=== PATIENT | female | born 1955 | race Caucasian/White ===

== ENCOUNTER 2022-07-15 01:07 | Emergency (ER) | payer OTHER, SELFPAY ==
[2022-07-15] VITALS (7 sets, daily range): BP systolic 78–137; BP diastolic 39–66; PULSE 78–90; RESP 11–18; TEMP 35.9–36.6; O2SAT 95–98; BMI 18.8
--- NOTE | 2022-07-15 | ECG_ITS ---
Test Reason : HYPOTENSION Blood Pressure : / mmHG Vent. Rate : 089 BPM Atrial Rate : 089 BPM P-R Int : 164 ms QRS Dur : 072 ms QT Int : 368 ms P-R-T Axes : 041 050 074 degrees QTc Int : 447 ms Normal sinus rhythm Normal ECG No previous ECGs available Referred By: Cindi Kinsey Electronically Signed By:Chance Amaro
--- NOTE | ~2022-07-15 | CT_ITS ---
EXAMINATION: CT ABDOMEN AND PELVIS WITHOUT CONTRAST CLINICAL INFORMATION: Abdominal pain COMPARISON: None available. TECHNIQUE: Multidetector volumetric imaging was performed from the superior aspect of the liver through the pubic symphysis. Sagittal and coronal reformatted images were obtained on the technologist's workstation. This CT examination was performed using dose optimization techniques as appropriate, variously including the following: *Automated exposure control *Adjustment of mA and/or kV according to patient size (this includes techniques or standardized protocols for targeted exams where dose is matched to indication/reason for exam; i.e. extremities or head) *Use of iterative reconstruction technique DLP: 590 mGy-cm FINDINGS: LUNG BASES: The visualized lung bases are unremarkable. LIVER, GALLBLADDER, AND BILIARY TREE: The liver is normal in size, shape, and attenuation. No focal hepatic lesion or biliary ductal dilatation is present. The gallbladder is unremarkable with no evidence of radiopaque gallstones, gallbladder wall thickening, or obvious pericholecystic inflammatory changes. PANCREAS: Unremarkable. SPLEEN: Unremarkable. ADRENAL GLANDS: Unremarkable. KIDNEYS AND URETERS: The kidneys are normal in size, shape, and attenuation. No hydronephrosis, hydroureter, or calculi seen. No perinephric stranding. BLADDER: Unremarkable. GASTROINTESTINAL TRACT: Stomach is distended, however there is no evidence of gastric outlet obstruction. No bowel obstruction. Moderate stool throughout the colon. No evidence of appendicitis. ABDOMINAL WALL: No significant hernia is appreciated. LYMPH NODES: Normal. VASCULAR: Aorta is atherosclerotic, but normal caliber. PELVIC VISCERA: Unremarkable. OSSEOUS STRUCTURES: No acute or suspicious osseous abnormalities. CT/CT abdomen pelvis wo IV con IMPRESSION: * No acute findings within the abdomen or pelvis to explain the patient's symptomatology. * Distended stomach without evidence of gastric outlet obstruction. * Moderate constipation. Fleischner guidelines were followed.
--- NOTE | ~2022-07-15 | XR_ITS ---
EXAMINATION: XR CHEST CLINICAL INFORMATION: Cough COMPARISON: None available. TECHNIQUE: Frontal view of the chest was obtained. FINDINGS: Normal symmetric lung volumes. No parenchymal consolidation. No pleural effusion. No pneumothorax. Cardiomediastinal silhouette and pulmonary vascularity are within normal limits. Aorta is atherosclerotic. No acute osseous abnormalities. Healed right anterior fourth and fifth rib fractures. XR/XR chest 1V IMPRESSION: No acute findings
[2022-07-15 01:48] LABS: Basophils Absolute Auto 0.1 X10*3/uL (0.0-0.2); Basophils Percent Auto 0.3 % (0-2); Eosinophils Percent Auto 0.2 % (0-4); Hemoglobin 13.7 g/dl (12.0-16.0); Imm Gran Abs Auto 0.07 X10*3/uL (0.00-0.03); Imm Gran Pct Auto 0.4 % (0.0-0.4); Lymphocytes Absolute Auto 1.9 X10*3/uL (1.2-4.9); Lymphocytes Percent Auto 11.7 % (20-40); MANUAL DIFF FLAG NO; Mean Corpuscular HGB Conc 34.3 g/dl (31.0-35.0); Mean Corpuscular Hemoglobin 30.8 pg (27.0-33.0); Mean Corpuscular Volume 89.9 fL (80.0-98.0); Monocytes Absolute Auto 1.2 X10*3/uL (0.1-1.2); Monocytes Percent Auto 7.1 % (2-11); Neutrophils Percent Auto 80.3 % (45-73); Platelet Count 401 X10*3/uL (160-400); Red Blood Count 4.45 X10*6/uL (4.20-5.50); Red Cell Distribution Width 13.3 % (11.0-16.0); White Blood Count 16.2 X10*3/uL (4.8-10.8)
--- NOTE | 2022-07-15 01:49 | PC.NURSE ---
Per Gia AGUILAR at [facility], pt was found on floor of room covered in stool prior to EMS arrival. Unwitnessed falls, denies thinners denies LOC. LAUREN Nielsen requesting to be called with patients medical status at [phone]
[2022-07-15] MEDS: 0.9 % Sodium Chloride 1,000 ML 999 ML IV (02:03)
[2022-07-15 02:04] LABS: Anion Gap 17 (12-20); Blood Urea Nitrogen 13 mg/dL (9-16); Calcium 9.7 mg/dL (8.4-10.2); Carbon Dioxide 21 mmol/L (22-29); Chloride 104 mmol/L (96-108); Creatinine Clr Calc Pharmacy 23.8; Estimated Glomerular Filt Rate 28; Glucose Random 132 mg/dL (60-115); Potassium 4.2 mmol/L (3.3-5.1); Sodium 138 mmol/L (135-145)
[2022-07-15 02:09] LABS: Troponin-I High Sensitivity 14.2 ng/L (<3.5-17.0)
[2022-07-15 03:05] LABS: Lactic Acid 2.1 mmol/L (0.5-2.0)
[2022-07-15 03:08] LABS: B Type Natriuretic Peptide 22 pg/mL (<100)
[2022-07-15 03:08] LABS: Appearance Urine Clear; Color Urine Yellow; Glucose Urine UA Negative (Negative); Leukocyte Esterase Urine Trace (Negative); Nitrite Urine Negative (Negative); UMIC TRIGGER UACC YES; Urine Blood Negative (Negative); Urine Ketones Trace mg/dL (Negative); Urine Protein 30 (1+) mg/dL (Neg-Trace)
[2022-07-15] MEDS: cefTRIAXone sodium 1 GM in 0.9 % Sodium Chloride 50 ML IV (03:12)
--- NOTE | 2022-07-15 03:14 | ED.WEAKNESS ---
HPI - Weakness General Chief complaint: Weakness Stated complaint: hypotension Time Seen by Provider: 07/15/22 01:34 Source: EMS Mode of arrival: EMS History of Present Illness HPI Narrative: This is a 66-year-old female who arrives from [facility] with hypotension, history of psychosis and dementia but staff found the patient on the floor with diarrhea. Patient is not able to provide any additional history at this time due to underlying dementia. Related Data Allergies Allergy/AdvReac Type Severity Reaction Status Date / Time Penicillins Allergy Anaphylaxis Verified 07/15/22 02:21 Review of Systems Review of Systems: Yes Unobtainable due to mental condition [facility] Past Medical History Source: nursing notes reviewed Social History Social History Alcohol intake: never Smoked in Last 30 Days: No Use of substances other than those prescribed or required for medical reasons: No Physical Exam Vital Signs: Vital Signs: Last Vital Signs Temp 97 F 07/15/22 04:00 Pulse 87 07/15/22 04:00 Resp 18 07/15/22 04:00 BP 137/65 07/15/22 04:00 Pulse Ox 97 07/15/22 04:00 O2 Del Method Room Air 07/15/22 04:00 BMI result Body Mass Index 18.8 VITAL SIGNS: Reviewed. GENERAL: Chronically ill, elderly in no acute distress. HEAD: Normocephalic/atraumatic EYES: PERRLA, EOMI EARS: Ext canals without abnormality NOSE: Nares patent bilateral OROPHARYNX: no oral lesions noted, posterior pharynx clear NECK: Supple, no adenopathy LUNGS: Good inspiratory effort, no expiratory wheeze, rhonchi, rales SpO2<98> CARDIOVASCULAR: Regular rate and rhythm without noted murmurs ABDOMEN: Soft, non-tender, non-distended with bowel sounds. MUSCULOSKELETAL: No tenderness, deformities, or effusions noted on gross inspection. EXTREMITIES: No cyanosis, clubbing or edema. SKIN: Inspection of the skin reveals no rashes NEUROLOGIC: Alert and oriented x 1, strength and sensation to light touch were grossly intact x 4. Medications Administered Discontinued Medications Generic Name Dose Route Start Last Admin Trade Name Freq PRN Reason Stop Dose Admin Sodium Chloride 1,000 mls @ 999 mls/hr 07/15/22 02:00 07/15/22 04:06 Ns IV 07/15/22 03:00 Infused .Q1H1M STEVE Infusion Sodium Chloride 1,496.85 mls @ 1,496.85 mls/hr 07/15/22 02:02 07/15/22 05:09 Ns 30 ml/kg infuse over 1 hr (1496.85 ml) 07/15/22 03:01 Infused IV Infusion .Q1H STA Ceftriaxone Sodium 1 gm/ 50 mls @ 100 mls/hr 07/15/22 02:41 07/15/22 04:07 Sodium Chloride IV 07/15/22 03:10 Infused ONCE ONE Infusion Medical Decision Making Medical Decision Making [facility] Narrative: 0230: 66-year-old female with suspected infection given the diarrhea and noted hypotension with elevated white count. Patient received IV sepsis fluids, antibiotics, blood cultures and lactic acid. Blood pressure as responded well to IV fluids. I reviewed all investigations and although patient does have a leukocytosis, CT abdomen/pelvis as well as urinalysis and chest x-ray are without evidence of acute infection. Suspect that this may be a component of hemoconcentration and patient has been significantly rehydrated, blood pressure remains steady and within normal limits. I reviewed the medication list from [employer] which clearly provides the nurses with information and guidance regarding soft stools/diarrhea. I do not think that patient needs any further antibiotics and she can continue with her home medications and be re-evaluated by primary care doctor at the facility. Differential Diagnosis Please see the discussion above Admission/Observation Consideration of admission/observation: Escalation of care including admission/observation considered Given suspicion for infection I am definitely considering admission. Lab Data Please see the discussion above 07/15/22 01:43 07/15/22 01:43 Labs: Lab Results 07/15/22 07/15/22 07/15/22 Range/Units 01:43 01:43 01:43 WBC 16.2 H (4.8-10.8) X10*3/uL RBC 4.45 (4.20-5.50) X10*6/uL Hgb 13.7 (12.0-16.0) g/dl Hct 40.0 (37.0-47.0) % MCV 89.9 (80.0-98.0) fL MCH 30.8 (27.0-33.0) pg MCHC 34.3 (31.0-35.0) g/dl RDW 13.3 (11.0-16.0) % Plt Count 401 H (160-400) X10*3/uL MPV 10.0 (9.4-12.3) fL Immature Gran % (Auto) 0.4 (0.0-0.4) % Neut % (Auto) 80.3 H (45-73) % Lymph % (Auto) 11.7 L (20-40) % Jones % (Auto) 7.1 (2-11) % Eos % (Auto) 0.2 (0-4) % Baso % (Auto) 0.3 (0-2) % Lymph # (Auto) 1.9 (1.2-4.9) X10*3/uL Jones # (Auto) 1.2 (0.1-1.2) X10*3/uL Eos # (Auto) 0.0 (0.0-0.4) X10*3/uL Baso # (Auto) 0.1 (0.0-0.2) X10*3/uL Abs Immat Gran (auto) 0.07 H (0.00-0.03) X10*3/uL Absolute Neuts (auto) 13.0 H (2.0-8.3) x10*3/uL Absolute Nucleated RBC 0.000 (0.0-0.012) X10*3/uL Nucleated RBC % (auto) 0.0 (0.0-0.2) /100WBC Sodium 138 (135-145) mmol/L Potassium 4.2 (3.3-5.1) mmol/L Chloride 104 (96-108) mmol/L Carbon Dioxide 21 L (22-29) mmol/L Anion Gap 17 (12-20) BUN 13 (9-16) mg/dL Creatinine 1.83 H (0.5-1.4) mg/dL Estim Creat Clear Calc 23.8 Estimated GFR 28 Random Glucose 132 H (60-115) mg/dL Lactic Acid (0.5-2.0) mmol/L Calcium 9.7 (8.4-10.2) mg/dL Troponin I High Sens 14.2 (<3.5-17.0) ng/L B-Natriuretic Peptide (<100) pg/mL Urine Color Urine Appearance Urine pH (5.0-9.0) Ur Specific [place] (1.005-1.025) Urine Protein (Neg-Trace) mg/dL Urine Glucose (UA) (Negative) mg/dL Urine Ketones (Negative) mg/dL Urine Blood (Negative) Urine Nitrite (Negative) Ur Leukocyte Esterase (Negative) Urine RBC (0-2) /HPF Urine WBC (0-5) /HPF Ur Squamous Epith Cells (0-2) /HPF Urine Bacteria (None Seen) Hyaline Casts (0-2) /LPF COVID-19 (NATHAN) (Negative) COVID-19 Clin Com 07/15/22 07/15/22 07/15/22 Range/Units 01:43 02:43 02:46 WBC (4.8-10.8) X10*3/uL RBC (4.20-5.50) X10*6/uL Hgb (12.0-16.0) g/dl Hct (37.0-47.0) % MCV (80.0-98.0) fL MCH (27.0-33.0) pg MCHC (31.0-35.0) g/dl RDW (11.0-16.0) % Plt Count (160-400) X10*3/uL MPV (9.4-12.3) fL Immature Gran % (Auto) (0.0-0.4) % Neut % (Auto) (45-73) % Lymph % (Auto) (20-40) % Jones % (Auto) (2-11) % Eos % (Auto) (0-4) % Baso % (Auto) (0-2) % Lymph # (Auto) (1.2-4.9) X10*3/uL Jones # (Auto) (0.1-1.2) X10*3/uL Eos # (Auto) (0.0-0.4) X10*3/uL Baso # (Auto) (0.0-0.2) X10*3/uL Abs Immat Gran (auto) (0.00-0.03) X10*3/uL Absolute Neuts (auto) (2.0-8.3) x10*3/uL Absolute Nucleated RBC (0.0-0.012) X10*3/uL Nucleated RBC % (auto) (0.0-0.2) /100WBC Sodium (135-145) mmol/L Potassium (3.3-5.1) mmol/L Chloride (96-108) mmol/L Carbon Dioxide (22-29) mmol/L Anion Gap (12-20) BUN (9-16) mg/dL Creatinine (0.5-1.4) mg/dL Estim Creat Clear Calc Estimated GFR Random Glucose (60-115) mg/dL Lactic Acid 2.1 H* (0.5-2.0) mmol/L Calcium (8.4-10.2) mg/dL Troponin I High Sens (<3.5-17.0) ng/L B-Natriuretic Peptide 22 (<100) pg/mL Urine Color Yellow Urine Appearance Clear Urine pH 7.0 (5.0-9.0) Ur Specific [place] 1.010 (1.005-1.025) Urine Protein 30 (1+) H (Neg-Trace) mg/dL Urine Glucose (UA) Negative (Negative) mg/dL Urine Ketones Trace (Negative) mg/dL Urine Blood Negative (Negative) Urine Nitrite Negative (Negative) Ur Leukocyte Esterase Trace H (Negative) Urine RBC 0-2 (0-2) /HPF Urine WBC 0-5 (0-5) /HPF Ur Squamous Epith Cells 0-2 (0-2) /HPF Urine Bacteria None Seen (None Seen) Hyaline Casts 6-10 (0-2) /LPF COVID-19 (NATHNA) (Negative) COVID-19 Clin Com 07/15/22 Range/Units 03:52 WBC (4.8-10.8) X10*3/uL RBC (4.20-5.50) X10*6/uL Hgb (12.0-16.0) g/dl Hct (37.0-47.0) % MCV (80.0-98.0) fL MCH (27.0-33.0) pg MCHC (31.0-35.0) g/dl RDW (11.0-16.0) % Plt Count (160-400) X10*3/uL MPV (9.4-12.3) fL Immature Gran % (Auto) (0.0-0.4) % Neut % (Auto) (45-73) % Lymph % (Auto) (20-40) % Jones % (Auto) (2-11) % Eos % (Auto) (0-4) % Baso % (Auto) (0-2) % Lymph # (Auto) (1.2-4.9) X10*3/uL Jones # (Auto) (0.1-1.2) X10*3/uL Eos # (Auto) (0.0-0.4) X10*3/uL Baso # (Auto) (0.0-0.2) X10*3/uL Abs Immat Gran (auto) (0.00-0.03) X10*3/uL Absolute Neuts (auto) (2.0-8.3) x10*3/uL Absolute Nucleated RBC (0.0-0.012) X10*3/uL Nucleated RBC % (auto) (0.0-0.2) /100WBC Sodium (135-145) mmol/L Potassium (3.3-5.1) mmol/L Chloride (96-108) mmol/L Carbon Dioxide (22-29) mmol/L Anion Gap (12-20) BUN (9-16) mg/dL Creatinine (0.5-1.4) mg/dL Estim Creat Clear Calc Estimated GFR Random Glucose (60-115) mg/dL Lactic Acid (0.5-2.0) mmol/L Calcium (8.4-10.2) mg/dL Troponin I High Sens (<3.5-17.0) ng/L B-Natriuretic Peptide (<100) pg/mL Urine Color Urine Appearance Urine pH (5.0-9.0) Ur Specific [place] (1.005-1.025) Urine Protein (Neg-Trace) mg/dL Urine Glucose (UA) (Negative) mg/dL Urine Ketones (Negative) mg/dL Urine Blood (Negative) Urine Nitrite (Negative) Ur Leukocyte Esterase (Negative) Urine RBC (0-2) /HPF Urine WBC (0-5) /HPF Ur Squamous Epith Cells (0-2) /HPF Urine Bacteria (None Seen) Hyaline Casts (0-2) /LPF COVID-19 (NATHAN) Negative (Negative) COVID-19 Clin Com See Note Independent Interpretation I performed an independent interpretation of an: EKG Interpretation: Normal sinus rhythm, HR-89, no STEMI, ID/QRS/QTC is within normal limits. Radiology Impression Radiologist Impression: My interpretation is in agreement with radiology's impression of the imaging studies. Discharge Plan Discharge Clinical Impression: Dehydration, Hypovolemia Patient Disposition: Xfer SNF Interventions: ED Discharge Assessment Last Done: 07/15/22 05:16
[2022-07-15] MEDS: 0.9 % Sodium Chloride 1,496.85 ML 1496.85 ML IV (03:16)
[2022-07-15 03:27] LABS: Bacteria Urine None Seen (None Seen); RBC Urine 0-2 /HPF (0-2); Squamous Epithelial Cell Urine 0-2 /HPF (0-2); WBC Urine 0-5 /HPF (0-5)
[2022-07-15 04:18] LABS: COVID-19 Test Negative (Negative); IDNOW Serial# 9DB6401D
[2022-07-15 04:48] LABS: Reflex Lactate? Lactic Acid Added
--- NOTE | 2022-07-15 05:13 | PC.NURSE ---
Report given to LAUREN Nielsen at [facility] with no further questions at this time
--- OUTSIDE RECORDS SUMMARY | 2022-07-15 06:46 | XMS_ITS ---
Author Name Gary Naik Address [address] [place] [address] Organization 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 Name Role Phone Gary Naik Unavailable [phone] PROBLEMS Type Condition ICD9-CM Code [id number] Code Onset Dates Condition Status SNOMED Code Problem Anxiety F41.9 Active 22105661 Problem Periodic limb moveme nt disorder G47.61 Active 351906371 Problem Hypercholesterolemia E78.00 Active 136 68892 Problem Asthma J45.909 Active 491578584 Problem Depression F32.9 Active 938022023 Problem Cognitive impairment , mild, so stated G31.84 Active 515823306 ALLERGIES Substance Reaction Event Type Date Status PriLOSEC Unknown Drug Allergy Oct, Active ENCOUNTERS Encounter Location Date Diagnosis [facility], [address] [address] Mar, [facility], [address] [address] Mar, [facility], [address] [address] Feb, [facility], [address] [address] Oct, Cognitive impairment, mild, so stated G31.84 and Periodic limb movement disorder G47.61 IMMUNIZATIONS No Known Immunizations SOCIAL HISTORY Qualifiers Date Current Smoker REASON FOR REFERRAL FUNCTIONAL STATUS PLAN OF CARE Activity Details VITAL SIGNS Heart Rate 92 /min 2020-11-02 Weight 132 lbs 2020-11-02 BMI 24.94 kg/m2 2020-11-02 Height 61 in 2020-11-02 Oximetry 98 % 2020-11-02 Blood pressure systolic 128 mm Hg Blood pressure diastolic 84 mm Hg 2020-10 MEDICATIONS Medication Instructions Dosage Frequency Start Date End Date Duration Status Benztropine Mesylate 1 MG 30 Active Magnesium Bisglycinate 100 MG Orally Take 2 tablets twice daily as directed Oct, Active Pravastatin Sodium 80 MG 30 Active Tamsulosin HCl 0.4 MG 30 Active Pantoprazole Sodium 40 MG 30 Active Sertraline HCl 100 MG 30 Active QUEtiapine Fumarate 200 MG 30 Acti ve Perphenazine 16 MG 30 Active Rivastigmine Tartrate 3 MG TAKE 1 CAPSULE(S) TWICE ADAY BY ORAL ROUTE FOR 30DAYS. 30 30 Active Gabapentin 100 MG TAKE 4 CAPSULES BY MOUTH EVERY DAY AT BEDTIME 30 30 Active PROCEDURES No Known procedures RESULTS No Results REASON FOR VISIT 6 month f/u, magnesium, refill/ question, follow-up, f/u Insurance Providers Health Insurance Type Health Plan Insurance Address Health Plan Insurance Phone Health Plan Insurance Name Health Plan Coverage Dates Member ID Patient Relationship to Subscriber Patient Address Patient Phone Patient Name Patient Date of Subscriber ID Subscriber Name Subscriber Date of Group No MEDICARE [address] [place] [id number] MEDICARE self [place]isha [place] [id number] [facility] [address] [place] [address] [facility] self Elishasloane [place] [id number]
--- OUTSIDE RECORDS SUMMARY | 2022-07-15 06:46 | XMS_ITS ---
Author Name Angeles Marcial Address [address] [place] [address] Organization [facility] Address [address] [place] [address] Care Team Providers Care Ex Chef Name Role Phone Angeles Marcial Unavailable [phone] PROBLEMS Type Condition ICD9-CM Code [id number] Code Onset Dates Condition Status SNOMED Code Problem GERD [Gastroesophage al reflux disease] 530.81 Active 933886373 ALLERGIES No Known Allergies ENCOUNTERS Encounter Location Date Diagnosis [address] [address] 15 Feb, 2022 [facility] [address] [place] [address] Feb, [facility] [address] [address] Jun, [facility] [address] [place] [address] Jun, [facility] [address] [phone] Jun, [facility] [address] [place] [address] May, [facility] [address] [place] [address] May, [address] [address] May, [facility] [address] [facility] [address] [place] [address] Jul, GERD [Gastroesophageal reflux disease] 530.81 [facility] [address] [facility] [address] [place] [address] Apr, [facility] [place] [address] [place] [address] 14 Apr, 2020 [facility] [address] [facility] [address] [place] [address] Apr, [facility] [address] [facility] [address] [place] [address] Feb, [facility] [address] [address] Apr, [address] [address] Mar, [facility] [address] [facility] [address] [place] [address] Jan, [facility] [address] [facility] [address] [place] [address] Nov, [facility] [address] [address] Nov, [facility] [address] [facility] [address] [place] [address] Mar, [facility] [address] [address] Mar, [facility] [address] [facility] [address] [place] [address] Mar, [facility] [address] [facility] [address] [place] [address] Mar, [facility] [address] [facility] [address] [place] [address] Sep, [facility] [address] [facility] [address] [place] [address] Sep, [facility] [address] [address] August, [facility] [address] [facility] [address] [place] [address] August, GERD [Gastroesophageal reflux disease] 530.81 IMMUNIZATIONS No Known Immunizations SOCIAL HISTORY Qualifiers Date Current Smoker REASON FOR REFERRAL FUNCTIONAL STATUS PLAN OF CARE Activity Details VITAL SIGNS BMI 24.95 kg/m2 2020-07-12 Weight 136.4 lbs 2020-07-12 Weight 149.1 lbs 2013-09-03 Height 5'2 Ft 2020-07-12 Blood pressure systolic 140 mm Hg Blood pressure diastolic 92 mm Hg 2013-08 MEDICATIONS Medication Instructions Dosage Frequency Start Date End Date Duration Status pantoprazole 40 mg 1 TAB(S) TWICE A DAY ORALLY 30 DAY(S) 30 Active famotidine 40 mg orally once a day (at bedtime) 1 tab(s) 30 days Active SEROquel Active SEROquel Active PEG-3350 with Electolytes - orally every 15 minutes as directed Feb, 1 days Active PROCEDURES No Known procedures RESULTS Name Result Date Reference Range Surgical pathology, Level IV, salivary glands 2022-02-21 Final Diagnosis See Note Gross Pathology See Note Wilder Pathology See Note Nature of Specimen See Note Text Diagnosis See Note Surgical pathology, Level IV, salivary glands 2021-05-31 Final Diagnosis See Note Gross Pathology See Note Wilder Pathology See Note Nature of Specimen See Note Text Diagnosis See Note Surgical pathology, Level IV, salivary glands 2020-04-22 Final Diagnosis See Note Gross Pathology See Note Wilder Pathology See Note Nature of Specimen See Note Text Diagnosis See Note Surgical pathology, Level IV, salivary glands 2019-04-14 Final Diagnosis See Note Gross Pathology See Note Wilder Pathology See Note Nature of Specimen See Note Text Diagnosis See Note Surgical pathology, Level IV, salivary glands 2018-03-28 Final Diagnosis See Note Surgical pathology, Level IV, salivary glands 2016-11-14 Final Diagnosis See Note Surgical pathology, Level IV, salivary glands 2013-09-04 Final Diagnosis See Note REASON FOR VISIT WSC: COLO SCREENING INS [facility] PCP DR. PADILLA PREP COLYTE KK, PREP , refill, update, egd question, WSC: EGD 1 YR RPT [facility] PCP DR. PADILLA KK, ESTAB PT: 3 MONTH F/U [facility] INS [facility] PCP DR. PADILLA KK, WSC: EGD 1 YR RPT [facility] INS [facility] PCP DR. PADILLA KK, WSC: EGD 1 YR RPT [facility] INS [facility] PCP DR. VALERIE CERVANTES, questions, EGD INSTRUCT 03/29/20, WSC EGD FOR [facility] PCP VALERIE INS [facility] KK ,WSC: EGD FOR [facility] INS [facility] PCP DR. VALERIE CERVANTES, PREP N 03/11/18, WSC: EGD FOR [facility] INS [facility] PCP DR. VALERIE CERVANTES, WSC: EGD FOR [facility] INS [facility] PCP DR. VALERIE CERVANTES, repeat egd, WSC EGD FOR [facility], HX OF GERD PCP VALERIE INS [facility] KK , PANTOPRAZOLE, pantoprazole , script, PANTOPRAZOLE, SCRIPT, WSC: EGD FOR GERD INS IS [facility] PCP TOY CERVANTES, NEW PT: REQUESTED BY DR TOY PADILLA FOR EPIGASTRIC PAIN AND HEARTBURN INS IS [facility] KK Insurance Providers Health Insurance Type Health Plan Insurance Address Health Plan Insurance Phone Health Plan Insurance Name Health Plan Coverage Dates Member ID Patient Relationship to Subscriber Patient Address Patient Phone Patient Name Patient Date of Subscriber ID Subscriber Name Subscriber Date of Group No [employer] [address] [address] [facility] [address] [employer] self LUDMILA BELIVEAU [id number] [facility] [address] [facility] [address] [place] self LUDMILA BELIVEAU [id number] MEDICARE [address] [place] [address] MEDICARE self LUDMILA BELIVEAU [id number]
== END 2022-07-15 06:46 | disposition skilled nursing facility (03) ==
LOC: HO.ED 06:44
PROVIDERS: Emergency Provider Student in an Organized Health Care Education/Training Program
DX: E86.0 Dehydration (principal); E86.1 Hypovolemia; I95.9 Hypotension, unspecified; D72.829 Elevated white blood cell count, unspecified; R14.0 Abdominal distension (gaseous); Z20.822 Contact with and (suspected) exposure to COVID-19; R53.1 Weakness; R62.7 Adult failure to thrive; Z68.1 Body mass index [BMI] 19.9 or less, adult
CPT/HCPCS: 36415; 51702; 71045; 74176; 80048; 81001; 83605; 83880; 84484; 85025; 87040; 87635; 93005; 96361; 96365; 99285; J0696